=== PATIENT | female | born 1970 | race Caucasian/White ===

== ENCOUNTER 2018-10-20 08:32 | Emergency (ER) | payer BC, SELFPAY ==
[2018-10-20 08:45] VITALS: BP 121/68; PULSE 109; RESP 20; TEMP 36.5; O2SAT 100; BMI 20.5
--- NOTE | 2018-10-20 09:00 | DI.RAD.S_ITS ---
PROCEDURE: XR SACRUM COCCYX MIN 2V INDICATIONS: pain fall down stairs last night TECHNIQUE: 3 views of the sacrum and coccyx acquired. COMPARISON: None. FINDINGS: Bones: Anterior positioning of the coccyx with respect to the sacrum is identified, which has a chronic appearance. However, superimposed acute process is difficult to exclude. No displaced sacral fractures are evident. There are degenerative changes of the lower lumbar spine. Partial fusion of the L5 left transverse process with the adjacent sacrum is noted. There are [id number] degenerative changes of the sacroiliac joints. Soft tissues: Visualized bowel gas pattern is normal. No suspicious soft tissue densities. IMPRESSION: Chronic appearing coccygeal injury. A superimposed acute process is difficult to exclude. Dictated by: Blake Fletcher M.D. on 10/20/2018 at 8:29 Approved by: Blake Fletcher M.D. on 10/20/2018 at 8:30
[2018-10-20] MEDS: KETOROLAC 60 MG/2 ML VIAL IM (09:05)
--- NOTE | 2018-10-20 09:05 | ED_ITS ---
HPI - Back Pain/Injury General Chief Complaint: Back Pain/Injury Stated Complaint: Sofi hurt due to fall Time Seen by Provider: 10/20/18 08:53 Source: patient Mode of arrival: ambulatory Limitations: no limitations History of Present Illness HPI Narrative: Patient is a 48-year-old female who presents with fall left buttock pain. She actually slipped and fell down the stairs last evening. She hurts some in the center as well but mostly seems to be on her left buttock. She took some ibuprofen and [place] last evening. It has not helped much. She has no numbness or tingling in her leg. She previously broke her coccyx this feels similar. She denies any other injury no head injury no loss of consciousness MD Complaint: fall Onset (ago): day(s) (1) Duration: constant Location: sacrum Context: fall Associated symptoms: denies other symptoms Related Data Previous Rx's Medication Instructions Recorded meloxicam 7.5 mg PO DAILY PRN #14 tab 10/20/18 Allergies Allergy/AdvReac Type Severity Reaction Status Date / Time Sulfa (Sulfonamide Allergy Swelling Verified 10/20/18 09:08 Antibiotics) of the Eye Review of Systems Review of Systems GENERAL: Denies chills,fever HEENT: Denies throat pain RESPIRATORY: Denies dyspnea, cough, wheezing CARDIOVASCULAR: Denies chest pain, palpitations GASTROINTESTINAL: Denies nausea, vomiting MUSCULOSKELETAL: See HPI SKIN: No rash, no laceration, no pruritus NEUROLOGIC: Denies weakness, dizziness, headache, numbness 8 point review of systems is negative except for those stated above and HPI [facility] Medical History Hypothyroid (Acute) Social History Smoking Status: Never smoker Exam Initial Vital Signs Initial Vital Signs: Vital Signs Temperature 97.7 F 10/20/18 08:45 Pulse Rate 109 H 10/20/18 08:45 Respiratory Rate 20 10/20/18 08:45 Blood Pressure 121/68 10/20/18 08:45 Pulse Oximetry 100 10/20/18 08:45 GENERAL: Well-appearing, well-nourished and in no acute distress. CARDIOVASCULAR: peripheral pulses in tact, cap refill <2 sec RESPIRATORY: No respiratory distress, speaks in full sentences without difficulty BACK: No vertebral tenderness no step-off. She does have pain in that left buttock area minimal pain over the coccyx and sacral area seems to be mostly in the gluteal region. No contusion noted. Pain reproducible by touch. EXTREMITIES: Normal range of motion, no clubbing or edema. Neurovascularly intact NEUROLOGICAL: Cranial nerves II through XII grossly intact. Normal gait and speech. SKIN: Warm, dry, no petechiae, no rashes or lesions. Course Orders Ordered: ED Orders 10/20/18 09:00 XR sacrum coccyx min 2V Stat Discontinued Medications Ketorolac Tromethamine (Toradol) 60 mg IM NOW ONE Stop: 10/20/18 09:01 Last Admin: 10/20/18 09:05 Dose: 60 mg Vital Signs - 8 hr 10/20/18 08:45 10/20/18 09:58 Temperature 97.7 F Pulse Rate 109 H 103 H Respiratory Rate 20 20 Blood Pressure 121/68 113/65 Pulse Oximetry 100 100 MDM - Back Pain/Injury Imaging Data XR sacrum: Radiologist's impression: PROCEDURE: XR SACRUM COCCYX MIN 2V INDICATIONS: pain fall down stairs last night TECHNIQUE: 3 views of the sacrum and coccyx acquired. COMPARISON: None. FINDINGS: Bones: Anterior positioning of the coccyx with respect to the sacrum is identified, which has a chronic appearance. However, superimposed acute process is difficult to exclude. No displaced sacral fractures are evident. There are degenerative changes of the lower lumbar spine. Partial fusion of the L5 left transverse process with the adjacent sacrum is noted. There are [id number] degenerative changes of the sacroiliac joints. Soft tissues: Visualized bowel gas pattern is normal. No suspicious soft tissue densities. IMPRESSION: Chronic appearing coccygeal injury. A superimposed acute process is difficult to exclude. Dictated by: Blake Fletcher M.D. on 10/20/2018 at 8:29 MDM Narrative Medical decision making narrative: Patient is feeling better. At this time no new fractures likely just contusion. Discharge Plan Departure Patient Disposition: Home Clinical Impression: Strain of left buttock Qualifiers: Encounter type: initial encounter Qualified Code(s): S76.012A - Strain of muscle, fascia and tendon of left hip, initial encounter Discharge Date/Time: 10/20/18 09:59 Interventions: ED Discharge Assessment Last Done: 10/20/18 09:58 Instructions: Contusion Activity Restrictions/Additional Instructions: *You have been diagnosed with left buttock contusion *What to do: At this time no sign of fracture. Increase activity as tolerated. ice 2230 minutes at a time *Continue to take medications as directed Meloxicam 7.5mg once daily do not combine with any other NSAID *Follow up with your primary care provider in 2-3 days *Return to ER if you should have [such as] [or] any new, worsening or concerning symptoms Prescriptions: New meloxicam 7.5 mg tablet 7.5 mg PO DAILY PRN (Reason: pain) Qty: 14 RF: 0
[2018-10-20 09:58] VITALS: BP 113/65; PULSE 103; RESP 20; O2SAT 100
== END 2018-10-20 09:59 | disposition home or self-care (01) ==
PROVIDERS: Emergency Provider Emergency Medicine
DX: S76.012A Strain of muscle, fascia and tendon of left hip, initial encounter (principal); W10.8XXA Fall (on) (from) other stairs and steps, initial encounter
CPT/HCPCS: 72220; 96372; 99282; 99283; J1885